=== PATIENT | female | born 1985 | race Caucasian/White ===

== ENCOUNTER 2018-05-25 13:40 | Emergency (ER) | payer OTHER ==
[~2018-05-25] VITALS: Ht 165.1 cm; Wt 145.2 kg
[2018-05-25] MEDS ORDERED: CIPRO500 MG PO (13:50)
[2018-05-25] MEDS ORDERED: PROTONIX40 M1 PO (13:50)
[2018-05-25 14:17] LABS: ABSOLUTE BASOPHILS 0.1 thou/uL (0.0-0.2); ABSOLUTE EOSINOPHILS 0.1 thou/uL (0.0-0.7); ABSOLUTE LYMPHOCYTES 1.7 thou/uL (0.8-5.3); ABSOLUTE MONOCYTES 0.6 thou/uL (0.0-1.2); ABSOLUTE NEUTROPHILS 6.6 thou/uL (1.6-8.1); BASOPHILS 0.6 %; EOSINOPHILS 0.8 %; HEMATOCRIT 41.1 % (37.0-47.0); LYMPHOCYTES 19.1 %; MCH 28.7 pg (26.0-34.0); MCV 84.4 fL (80.0-100.0); MONOCYTES 6.2 %; MPV 8.5 fl. (7.2-11.1); NUCLEATED RBCS 0 /100WBC; PLATELET COUNT* 286 thou/uL (150-400); POLYS 73.3 %; RBC 4.87 mil/uL (4.20-5.00); RDW-CV 13.7 % (10.5-14.5); WBC 8.9 thou/uL (4.0-11.0)
[2018-05-25 14:24] LABS: ANION GAP 2 mmol/L (7-16); BUN 12 mg/dL (7-18); CALCIUM 8.5 mg/dL (8.5-10.1); CHLORIDE 103 mmol/L (98-107); CO2 30 mmol/L (21-32); CREATININE 0.9 mg/dL (0.6-1.3); GLUCOSE 126 mg/dL (70-99); SODIUM 135 mmol/L (136-145)
[2018-05-25 14:31] LABS: ALBUMIN 3.5 g/dL (3.4-5.0); ALKALINE PHOSPHATASE 70 U/L (46-116); LIPASE 192 U/L (73-393); SGOT 57 U/L (15-37); SGPT 93 U/L (30-65); TOTAL BILIRUBIN 0.5 mg/dL (<0.1-1.0); TOTAL PROTEIN 8.3 g/dL (6.4-8.2); TROPONIN-I LEVEL <0.06 ng/mL (<0.06)
[2018-05-25 15:06] LABS: URINE BILIRUBIN NEGATIVE (Negative); URINE BLOOD NEGATIVE (Negative); URINE CLARITY CLEAR; URINE COLOR YELLOW; URINE GLUCOSE-RANDOM NEGATIVE (Negative); URINE KETONES NEGATIVE (Negative); URINE LEUKOCYTES-REFLEX 1+ (Negative); URINE NITRITE-REFLEX NEGATIVE (Negative); URINE PROTEIN NEGATIVE (Negative); URINE UROBILINOGEN 0.2 E.U./dl (0.2-1.0)
[2018-05-25 15:13] LABS: AMP/METHAMP Negative (Negative); BARBITURATES Negative (Negative); BENZODIAZEPINES Negative (Negative); COCAINE Negative (Negative); METHADONE Negative (Negative); OPIATES Negative (Negative); PCP Negative (Negative); THC Negative (Negative)
[2018-05-25 15:14] LABS: MUCUS 0-3 Light strn/LPF (None Seen); SQUAMOUS >10 Many /LPF (0-3)
[2018-05-25 15:15] LABS: CASTS None Seen /LPF (None Seen); CRYSTALS None Seen /LPF (None Seen); URINE RBC None Seen /HPF (0-2); URINE WBC-REFLEX 6-15 Few /HPF (0-5)
[2018-05-25] MEDS ORDERED: ZOFRAN ODT4 MG DISSOLVE (15:19)
[2018-05-25] MEDS ORDERED: BENTYL 20 MG TA20 M1 PO (15:19)
[2018-05-25 16:04] VITALS: BP 112/71
--- NOTE | 2018-05-26 13:58 | EKG ---
[place] [address] ELECTROCARDIOGRAM REPORT Name: MARGARET KENNEY Room: [facility]#: [id number] Admission: 05/25/18 Attend Phys: Discharge: 05/25/18 Date of : 89 Report #: [id number] THIS REPORT FOR: //name// [facility] ED Test Date: 2018-05-25 Test Time: 14:10:22 Pat Name: MARGARET KENNEY Department: Room: Gender: F [employer]: NORMA : 1985 Requested By: Emil Dudley Order Number: [id number] MD: Juliano Pedersen Measurements Intervals [place] Rate: 71 P: 48 PA: 177 QRS: 8 QRSD: 89 T: 19 QT: 404 QTc: 439 Interpretive Statements Sinus rhythm Baseline wander in lead(s) II,III,aVF No previous ECG available for comparison Electronically Signed On 05-26-2018 13:58:41 CDT by Juliano Pedersen [email or web address] <ELECTRONICALLY SIGNED> By: Roxana Pedersen MD, [facility] 05/26/18 1358 1410 1410 Roxana Pedersen MD, FACC /EPI
== END 2018-05-25 16:05 | disposition home or self-care (01) ==
LOC: M.ERS 13:40
PROVIDERS: Emergency Medicine Emergency Medical Services
DX: K29.70 Gastritis, unspecified, without bleeding (principal); R10.816 Epigastric abdominal tenderness